=== PATIENT | female | born 1990 | race Caucasian/White ===

== ENCOUNTER 2019-05-01 21:00 | Emergency (ER) | payer OTHER, MEDICAID ==
[~2019-05-01] VITALS: Ht 165.1 cm; Wt 91.0 kg
[2019-05-01 21:07] VITALS: BP 129/80
== END 2019-05-01 22:31 | disposition home or self-care (01) ==
LOC: ED 22:00
DX: S83.014A Lateral dislocation of right patella, initial encounter (principal); V00.121A Fall from non-in-line roller-skates, initial encounter; Y93.51 Activity, roller skating (inline) and skateboarding; Y92.89 Other specified places as the place of occurrence of the external cause; Y99.8 Other external cause status
CPT/HCPCS: 29505; 99283

== ENCOUNTER 2019-06-21 13:39 | Emergency (ER) | payer OTHER, MEDICAID ==
[~2019-06-21] VITALS: Ht 165.1 cm; Wt 93.2 kg
[2019-06-21 13:54] VITALS: BP 112/55
== END 2019-06-21 14:48 | disposition home or self-care (01) ==
LOC: ED 14:46
DX: H81.10 Benign paroxysmal vertigo, unspecified ear (principal)
CPT/HCPCS: 36415; 80048; 82040; 84703; 85025; 93005; 99284

== ENCOUNTER 2019-12-26 07:03 | Outpatient (CLI) | payer OTHER, MEDICAID ==
[~2019-12-26 07:03] MED LIST: TIZA4CAP PO; TRAZ50TA66 PO
[2019-12-26 07:14] LABS: BASOPHILS # (AUTO) 0.04 x10^3/uL (0-0.1); BASOPHILS % (AUTO) 1 % (0-1); EOSINOPHILS # (AUTO) 0.17 x10^3/uL (0-0.4); EOSINOPHILS % (AUTO) 3 % (1-7); LYMPHOCYTES # (AUTO) 2.25 x10^3/uL (1-3.4); LYMPHOCYTES % (AUTO) 33 % (22-44); MD NO; MEAN CORPUSCULAR HEMOGLOBIN 29.3 pg (27.0-34.8); MEAN CORPUSCULAR HGB CONC 33.3 g/dL (32.4-35.8); MEAN PLATELET VOLUME 8.2 fL (7.4-10.4); MONOCYTES # (AUTO) 0.27 x10^3/uL (0.2-0.8); MONOCYTES % (AUTO) 4 % (2-9); NEUTROPHILS % (AUTO) 59 % (42-75); PLATELET COUNT 227 x10^3/uL (130-400); RED BLOOD COUNT 5.16 x10^6/uL (3.82-5.3); RED CELL DISTRIBUTION WIDTH 13.9 % (9.6-15.2)
[2019-12-26 07:26] LABS: ANION GAP 7 mmol/L (5-15); CHLORIDE 108 mmol/L (98-107); CREATININE 0.86 mg/dL (0.55-1.02)
[2019-12-26 07:37] LABS: T4 (THYROXINE) 8.1 mcg/dL (4.8-13.9)
== END 2019-12-26 23:59 | disposition home or self-care (01) ==
LOC: LAB 07:03
PROVIDERS: ATTEND Registered Nurse
DX: R00.1 Bradycardia, unspecified (principal); R55 Syncope and collapse
CPT/HCPCS: 36415; 80048; 84436; 84443; 84481; 85025

== ENCOUNTER 2019-12-29 08:06 | Day surgery (SDC) | payer MEDICAID, OTHER ==
[~2019-12-29] VITALS: Ht 165.1 cm; Wt 97.2 kg
[2019-12-29] MEDS ORDERED: LIDOCAINE 2%, 20ML ONE (09:58)
== END 2019-12-29 11:07 | disposition home or self-care (01) ==
LOC: CACL 08:06
PROVIDERS: ATTEND Internal Medicine Cardiovascular Disease
DX: R55 Syncope and collapse (principal); I49.5 Sick sinus syndrome; G43.909 Migraine, unspecified, not intractable, without status migrainosus; F12.10 Cannabis abuse, uncomplicated; Z79.899 Other long term (current) drug therapy
CPT/HCPCS: 33285; C1764

== ENCOUNTER 2020-02-07 06:19 | Observation (INO) | payer OTHER ==
[~2020-02-07] VITALS: Ht 165.1 cm; Wt 104.9 kg
[2020-02-07] MEDS ORDERED: SODIUM CHLORIDE 0.9% 1,000 ML IV SCH (06:37)
[2020-02-07 06:45] VITALS: BP 128/85
[2020-02-07] MEDS ORDERED: IBUP-1222 PO (06:48)
[2020-02-07] MEDS ORDERED: CEFAZOLIN PMX 1GM/50ML 50 ML IVPB ONE (07:00)
[2020-02-07 07:04] LABS: BASOPHILS # (AUTO) 0.07 x10^3/uL (0-0.1); BASOPHILS % (AUTO) 1 % (0-1); EOSINOPHILS # (AUTO) 0.14 x10^3/uL (0-0.4); EOSINOPHILS % (AUTO) 2 % (1-7); LYMPHOCYTES # (AUTO) 2.65 x10^3/uL (1-3.4); LYMPHOCYTES % (AUTO) 38 % (22-44); MD NO; MEAN CORPUSCULAR HEMOGLOBIN 29.7 pg (27.0-34.8); MEAN CORPUSCULAR HGB CONC 34.1 g/dL (32.4-35.8); MEAN CORPUSCULAR VOLUME 87.1 fL (80-100); MEAN PLATELET VOLUME 8.2 fL (7.4-10.4); MONOCYTES # (AUTO) 0.33 x10^3/uL (0.2-0.8); MONOCYTES % (AUTO) 5 % (2-9); NEUTROPHILS # (AUTO) 3.84 x10^3/uL (1.8-6.8); NEUTROPHILS % (AUTO) 55 % (42-75); PLATELET COUNT 252 x10^3/uL (130-400); RED BLOOD COUNT 5.54 x10^6/uL (3.82-5.3); RED CELL DISTRIBUTION WIDTH 13.9 % (9.6-15.2)
[2020-02-07 07:11] LABS: ANION GAP 7 mmol/L (5-15); CALCIUM 9.3 mg/dL (8.5-10.1); CHLORIDE 109 mmol/L (98-107); CREATININE 0.78 mg/dL (0.55-1.02)
[2020-02-07] MEDS ORDERED: CEFAZOLIN PMX 1GM/50ML 50 ML ONE (08:05)
[2020-02-07] MEDS ORDERED: LIDOCAINE 2%, 20ML ONE (08:05)
[2020-02-07] MEDS ORDERED: MIDAZOLAM 1 MG/ML, 5ML ONE (08:05)
[2020-02-07] MEDS ORDERED: FENTANYL PF 100 MCG/2ML ONE (08:05)
[2020-02-07] MEDS ORDERED: CEFAZOLIN 1,000 MG ONE (08:06)
[2020-02-07] MEDS ORDERED: LIDOCAINE 1%, 20ML ONE (08:44)
[2020-02-07] MEDS ORDERED: Hold all anticoagulants for 24 hours MC PRN (09:30)
[2020-02-07] MEDS ORDERED: ACETAMINOPHEN 325 MG TABLET PO PRN (09:30)
[2020-02-07 11:10] VITALS: BP 131/81
[2020-02-07 13:45] VITALS: BP 106/73
[2020-02-07] MEDS: CEFAZOLIN PMX 1GM/50ML 50 ML IVPB SCH (16:36)
[2020-02-07 19:16] VITALS: BP 111/75
[2020-02-07] MEDS: SODIUM CHLORIDE FLUSH 10ML SYR IVF SCH (20:52)
[2020-02-07] MEDS ORDERED: TIZANIDINE 2MG TABLET PO SCH (21:00)
[2020-02-08] MEDS: CEFAZOLIN PMX 1GM/50ML 50 ML IVPB SCH (00:32)
[2020-02-08 00:36] VITALS: BP 93/60
[2020-02-08 08:00] VITALS: BP 120/79
[2020-02-08] MEDS ORDERED: ACET325T26 PO (08:06)
[2020-02-08] MEDS: SODIUM CHLORIDE FLUSH 10ML SYR IVF SCH (09:00)
== END 2020-02-08 11:43 | disposition home or self-care (01) ==
LOC: CACL 06:19 → ORIP 09:14 → 5SO 11:20
PROVIDERS: ADMIT Internal Medicine Cardiovascular Disease; ATTEND Internal Medicine Cardiovascular Disease
DX: I49.5 Sick sinus syndrome (principal); R55 Syncope and collapse
CPT/HCPCS: 33208; 33286; 36415; 71045; 71046; 80048; 84702; 85025; 96365; 96366; 99156; 99157; C1779; C1785; C1892; G0378; J0690; J2250; J3010; J3490

== ENCOUNTER → 2020-04-24 | Outpatient (CLI) | payer OTHER, MEDICAID ==
[~2020-04-24] MED LIST changes: +ACET325T26 PO; +IBUP-1222 PO
[2020-04-24 12:58] LABS: BASOPHILS # (AUTO) 0.03 x10^3/uL (0-0.1); BASOPHILS % (AUTO) 0 % (0-1); EOSINOPHILS % (AUTO) 1 % (1-7); LYMPHOCYTES % (AUTO) 27 % (22-44); MD NO; MEAN CORPUSCULAR HEMOGLOBIN 29.5 pg (27.0-34.8); MEAN CORPUSCULAR HGB CONC 33.9 g/dL (32.4-35.8); MEAN CORPUSCULAR VOLUME 87.1 fL (80-100); MEAN PLATELET VOLUME 8.7 fL (7.4-10.4); MONOCYTES # (AUTO) 0.26 x10^3/uL (0.2-0.8); MONOCYTES % (AUTO) 3 % (2-9); NEUTROPHILS # (AUTO) 5.82 x10^3/uL (1.8-6.8); NEUTROPHILS % (AUTO) 68 % (42-75); PLATELET COUNT 235 x10^3/uL (130-400); RED BLOOD COUNT 5.47 x10^6/uL (3.82-5.3); RED CELL DISTRIBUTION WIDTH 13.9 % (9.6-15.2)
[2020-04-24 13:05] LABS: ALANINE AMINOTRANSFERASE 34 U/L (12-78); ALBUMIN 3.5 g/dL (3.4-5.0); ANION GAP 8 mmol/L (5-15); CALCIUM 9.1 mg/dL (8.5-10.1); CHLORIDE 108 mmol/L (98-107)
[2020-04-24 13:17] LABS: ALKALINE PHOSPHATASE 81 U/L (45-117); BILIRUBIN,TOTAL 0.6 mg/dL (0.2-1.0); FREE T4 (FREE THYROXINE) 1.04 ng/dL (0.76-1.46); TOTAL PROTEIN 7.4 g/dL (6.4-8.2)
== END | disposition home or self-care (01) ==
LOC: CFH 07:13
PROVIDERS: ATTEND Physician Assistant
DX: Z00.00 Encounter for general adult medical examination without abnormal findings (principal); R53.83 Other fatigue; E78.5 Hyperlipidemia, unspecified; E74.39 Other disorders of intestinal carbohydrate absorption
CPT/HCPCS: 36415; 80053; 80061; 83036; 84439; 84443; 84481; 85025

== ENCOUNTER 2020-05-13 06:57 | Outpatient (CLI) | payer OTHER, MEDICAID | END 2020-05-13 23:59 | disposition home or self-care (01) | LOC: CFH 06:57 | PROVIDERS: ATTEND Registered Nurse | DX: T82.897A Other specified complication of cardiac prosthetic devices, implants and grafts, initial encounter (principal); Y83.8 Other surgical procedures as the cause of abnormal reaction of the patient, or of later complication, without mention of misadventure at the time of the procedure; Y82.8 Other medical devices associated with adverse incidents | CPT/HCPCS: 76604 ==

== ENCOUNTER 2021-08-07 16:20 | Emergency (ER) | payer OTHER, MEDICAID ==
[~2021-08-07] VITALS: Ht 165.1 cm; Wt 95.0 kg
--- NOTE | 2021-08-07 16:27 | NUR ---
ERMD AT BEDSIDE FOR EVALUATION.
[2021-08-07] MEDS ORDERED: METH-639 PO (16:29)
[2021-08-07] MEDS ORDERED: TRAM50TA2 PO (16:29)
--- NOTE | 2021-08-07 16:43 | NUR ---
PACER INTERROGATION DONE.
--- NOTE | 2021-08-07 16:46 | NUR ---
BIB EMS WITH CHIEF C/O SYNCOPAL EPISODES X2, FIRST ONE AT 0930 THIS MORNING AND SECOND ONE AROUND 0330 THIS AFTERNOON. PER EMS PATIENT DENIES TRAUMA OR INJURY, NO BLOOD THINNERS. 20 GAUGE IV STARTED LEFT AC EN ROUTE, NO INTERVENTIONS. VSS EN ROUTE. UPON ASSESSMENT PATIENT REPORTS SHE DID NOT LOSE FULL CONSCIOUSNESS, AND BOTH TIMES WAS SITTING DOWN WHEN SHE EXPERIENCED HER SYNCOPAL EPISODES. PATIENT DENIES CHEST PAIN OR SOB, STATES SHE DOES FELL DIZZY WHEN SHE STANDS UP. CONNECTED TO MONITOR,VSS, CALL LIGHT WITHIN REACH.
[2021-08-07] MEDS ORDERED: SODIUM CHLORIDE FLUSH 10ML SYR IVF ONE (17:00)
[2021-08-07] MEDS ORDERED: SODIUM CHLORIDE 0.9% 1,000ML IVBOLUS ONE (17:00)
--- NOTE | 2021-08-07 17:30 | NUR ---
PATIENT AMBULATED TO [facility] [place] TO [facility] BY SELF, NADN, CONNECTED TO MONITOR, VSS, CALL LIGHT WITHIN REACH. [employer]ENTER MANAGER AT BEDSIDE.
[2021-08-07 17:41] LABS: BASOPHILS % (AUTO) 1 % (0-1); EOSINOPHILS % (AUTO) 2 % (1-7); LYMPHOCYTES % (AUTO) 25 % (22-44); MEAN CORPUSCULAR HEMOGLOBIN 29.1 pg (27.0-34.8); MEAN CORPUSCULAR HGB CONC 33.6 g/dL (32.4-35.8); MEAN PLATELET VOLUME 7.7 fL (7.4-10.4); MONOCYTES % (AUTO) 4 % (2-9); NEUTROPHILS % (AUTO) 68 % (42-75); PLATELET COUNT 248 x10^3/uL (130-400)
[2021-08-07 17:52] LABS: ALBUMIN 2.9 g/dL (3.4-5.0); ANION GAP 4 mmol/L (5-15); CALCIUM 8.7 mg/dL (8.5-10.1); CHLORIDE 105 mmol/L (98-107)
--- NOTE | 2021-08-07 17:56 | NUR ---
ERMD AT BEDSIDE TO DISCUSS POC.
[2021-08-07 17:58] LABS: CREATININE 0.76 mg/dL (0.55-1.02); TROPONIN I < 0.015 ng/mL (0.000-0.045)
[2021-08-07 18:22] VITALS: BP 106/52
--- NOTE | 2021-08-07 18:30 | NUR ---
IV removed with tip intact. Patient given discharge instructions and they have confirmed that they understand the instructions. Patient ambulatory with steady gait. NAD, all questions answered appropriately, denies additional needs at this time. No personal belongings left in room after discharge.
== END 2021-08-07 18:48 | disposition home or self-care (01) ==
LOC: ED 18:44
DX: R55 Syncope and collapse (principal); I48.91 Unspecified atrial fibrillation; E86.0 Dehydration; R53.1 Weakness; R94.31 Abnormal electrocardiogram [ECG] [EKG]; Z95.0 Presence of cardiac pacemaker
CPT/HCPCS: 36415; 71045; 80048; 82040; 84484; 85025; 93005; 96360; 99285; J7030